=== PATIENT | male | born 1945 | race Two or more races ===

== ENCOUNTER 2017-08-19 11:58 | Day surgery (SDC) | payer MEDICARE, BC ==
[~2017-08-19] VITALS: Ht 167.6 cm; Wt 92.9 kg
[~2017-08-19 11:58] MED LIST: ALPR0.254 PO; ASPI-699 PO; BISA5TAB6 PO; ENAL20TA PO; METO-319 PO; PRAV40TA76 PO
[2017-08-19] MEDS ORDERED: DOCU-103 PO (12:44)
[2017-08-19] MEDS ORDERED: HYDR28.334 TP (12:44)
[2017-08-19 12:55] VITALS: Ht 167.6 cm; Wt 92.9 kg
[2017-08-19 13:07] VITALS: BP 120/65; PULSE 108; RESP 12
[2017-08-19] MEDS ORDERED: PROPOFOL 0 ML ONE (13:28)
--- NOTE | 2017-08-19 14:32 | OPPN ---
Date/Time of Note Date/Time of Note DATE: 08/19/17 TIME: 14:17 Proc Note GI Procedure Date 08/19/17 Indication: other (Hematochezia) Pre-procedure Diagnosis Hematochezia Post-procedure Diagnosis Impression: 3 mm sessile polyp proximal ascending colon. Ablated Mild universal diverticulosis Large internal hemorrhoids Plan: Follow up as scheduled] High fiber diet Annual hemoccult stool testing [Review pathology] [Surveillance colonoscopy in 5 years] Conservative management hemorrhoidal disease bleeding persists consider hemorrhoidal banding . Procedure Performed: Colonoscopy (With polyp ablation) Surgeon ZAIDA UNDERWOOD MD See signature line Network Coordinator none Anesthesia Type: MAC Anesthesiologist: RUDY BRODERICK MD Tourniquet Time none EBL none Transfusion required none Biopsy 1: None Polyp 1: Proximal ascending colon Grafts/Implants none Tubes/Drains none Complication(s) none Disposition: home Procedure Description After informed consent, with the patient/relatives understanding the procedure, its indications and potential risks and complications, including but not limited to: Allergic reaction, bleeding, perforation, infection, and after all pertinent questions were answered to the patient's satisfaction, the patient/ relatives signed the witnessed informed consent. Following this, premedication was administered slowly IV push under careful cardiovascular and respiratory monitoring with pulse OXIMETRY, automatic blood pressure, and quality assurance monitor body. Once the sedative effect was achieved, the patient was placed in the left lateral decubitus position, digital rectal examination was performed. The colonoscope was then introduced and advanced under visual control throughout all segments of the colon including: []the rectum, sigmoid, descending colon, splenic flexure, transverse colon, hepatic flexure, ascending colon and finally reaching the cecum which was clearly identified by transillumination, finger indentation and the ileocecal valve. Careful examination of the mucosa of the lower gastrointestinal tract both on insertion as well as withdrawal of the instrument disclosed the following findings: PREPARATION QUALITY: [Adequate], RECTAL EXAM: The anorectal area was visualized examined and digital rectal examination performed with the following findings: No evidence of perirectal disease, no masses. COLONIC MUCOSA: The mucosa of all segments of the colon was carefully examined and showed the following findings: There is a 3 mm polyp in the proximal ascending colon. Ablated. There is mild diverticulosis in the universal distribution. There are large internal hemorrhoids likely source of hematochezia. Otherwise the examined mucosa appears within normal limits. There is no evidence of inflammatory changes, other neoplasms, vascular malformation, or any other abnormality. The instrument was then withdrawn, the patient tolerated the procedure well and was transferred out of the Endoscopy Suite awake and in good condition to continue recovery under observation. Copies To: CC: ZAIDA UNDERWOOD MD, MORDO MD Aug 19, 2017 14:27
[2017-08-19 14:40] VITALS: BP 117/63; RESP 14
[2017-08-19] MEDS ORDERED: PROPOFOL 40 ML ONE (16:01)
== END 2017-08-19 15:52 | disposition home or self-care (01) ==
LOC: GIL 11:58
PROVIDERS: ATTEND Internal Medicine Gastroenterology
DX: K92.1 Melena (principal); D12.2 Benign neoplasm of ascending colon; K57.90 Diverticulosis of intestine, part unspecified, without perforation or abscess without bleeding; K64.8 Other hemorrhoids; I10 Essential (primary) hypertension; E78.5 Hyperlipidemia, unspecified
CPT/HCPCS: 88305